=== PATIENT | male | born 1995 | race Caucasian/White ===

== ENCOUNTER 2023-03-14 19:43 | Emergency (ER) | payer SELFPAY ==
[2023-03-14 19:48] VITALS: BP 138/74; PULSE 103; RESP 20; TEMP 37; O2SAT 97; BMI 38.4
--- NOTE | 2023-03-14 19:55 | DI.RAD.S_ITS ---
PROCEDURE: XR CHEST 2V INDICATIONS: cough, SOB, wheeze TECHNIQUE: 2 views of the chest were acquired. COMPARISON: None. FINDINGS: Surgical changes and devices: None. Lungs and pleura: Lungs are clear. No pleural effusions or pneumothorax. Mediastinum: Mediastinal contours are normal. Heart size is normal. Bones and chest wall: No suspicious bony abnormalities. Soft tissues appear unremarkable. IMPRESSION: No acute pulmonary process. Dictated by: Naty Weems M.D. on 03/14/2023 at 20:32 Approved by: Naty Weems M.D. on 03/14/2023 at 20:32
--- NOTE | 2023-03-14 19:58 | ED_ITS ---
HPI - SOB/Dyspnea General Chief Complaint: Shortness of Breath/Dyspnea Stated Complaint: short of breath, cough, lightheaded Time Seen by Provider: 03/14/23 19:50 Source: patient Mode of arrival: Ambulatory Limitations: no limitations History of Present Illness HPI Narrative: 27-year-old male former smoker without chronic medical history presents with some runny nose, mild sore throat, wheezing and a dry hacking cough for the past few days. He denies any fever or chills. He denies nausea or vomiting. He has no body aches. He denies exposure to other ill persons. He has a sharp and stabbing central chest pain that is worse with deep breath or cough. He denies recent travel, trauma or injury. He denies any history of blood clot or known cancer. Denies any pain, swelling or redness of his extremities. Related Data Previous Rx's Medication Instructions Recorded benzonatate 200 mg capsule 200 mg PO BID PRN cough #20 caps 03/14/23 prednisone 10 mg tablet See Rx Instructions .Route 03/14/23 .COMPLEX #30 tabs Allergies Allergy/AdvReac Type Severity Reaction Status Date / Time No Known Drug Allergies Allergy Verified 03/14/23 19:48 Review of Systems Review of Systems Narrative: GENERAL: See HPI HEENT: Denies sinus pain, ear pain, sore throat, difficulty swallowing, dizziness. RESPIRATORY: See HPI CARDIOVASCULAR: See HPI GASTROINTESTINAL: Denies nausea, vomiting, abdominal pain, diarrhea, constipation, melena. : Denies dysuria, frequency, incontinence, hematuria, urinary retention. MUSCULOSKELETAL: denies weakness, joint pain, or bony pain SKIN: Denies rash, skin lesions, or other NEUROLOGIC: Denies weakness, headache, numbness, change in speech, confusion, seizures, incoordination. PSYCHIATRIC: No concerning psychosocial issues. 12 point review of systems is negative except for those stated above Patient History Social History Smoking Status: Former smoker Smoking Status: Former smoker Exam Narrative Exam Narrative: GENERAL: [27] year old patient appears stated age. Well-developed patient, in mild distress. HEAD: Atraumatic. Normocephalic. EYES: Pupils equal round and reactive. Extraocular motions intact. No scleral icterus. No injection or drainage. ENT: Nose without bleeding, purulent drainage. Throat without erythema, tonsillar hypertrophy or exudate. Airway patent. NECK: Trachea midline. Non tender CARDIOVASCULAR: Tachycardic but regular rhythm without murmurs, gallops, or rubs. Central chest pain worse with deep breath and with palpation RESPIRATORY: Decreased breath sounds throughout with an expiratory wheeze in all m[place], most notable in bases GASTROINTESTINAL: Abdomen soft, non-tender, nondistended. EXTREMITIES: No edema or joint tenderness. BACK: Nontender without deformity or crepitance. No flank tenderness. NEURO: AOx3. SKIN: No rash or erythema of visible areas Initial Vital Signs Initial Vital Signs: Vital Signs Temperature 98.6 F 03/14/23 19:48 Pulse Rate 103 H 03/14/23 19:48 Respiratory Rate 20 03/14/23 19:48 Blood Pressure 138/74 03/14/23 19:48 Pulse Oximetry 97 03/14/23 19:48 Oxygen Delivery Method Room Air 03/14/23 19:48 Scores PERC Score Age greater than or equal to 50 years: No Heart rate greater than or equal to 100 bpm: No Room Air O2 Sat less than 95%: No Unilateral leg swelling: No Recent trauma or surgery: No Hemoptysis: No Prior PE or DVT: No Hormone Use: No Total PERC Score: 0 Wells' Criteria for PE Clinical signs and symptoms of DVT: No PE is #1 Dx or equally likely: No Heart rate > 100: No Immobilization at least 3 days or surg in previous 4 weeks: No History of PE or DVT: No Hemoptysis: No Malignancy w/Treatment within 6 months or palliative: No Wells' PE Score total: 0 Course Orders Ordered: ED Orders 03/14/23 19:55 Chest [XR chest 2V] Stat Respiratory Panel (Film Array) Stat RT Consult Eval and Treat NOW Discontinued Medications Albuterol (Albuterol Hfa Prepack) 1 box MISC SEEINSTR ONE Stop: 03/14/23 20:37 Last Admin: 03/14/23 20:49 Dose: 1 box Documented By: USMAN Albuterol/Ipratropium (Albuterol/Ipratropium 3 Ml Ampul) 3 ml INH NOW ONE Stop: 03/14/23 19:56 Last Admin: 03/14/23 20:04 Dose: 3 ml Documented By: Prednisone (Prednisone 20 Mg Tablet) 40 mg PO NOW ONE Stop: 03/14/23 19:56 Last Admin: 03/14/23 20:10 Dose: 40 mg Documented By: USMAN Vital Signs Vital signs: Vital Signs - 8 hr 03/14/23 19:48 03/14/23 20:05 03/14/23 20:39 Temperature 98.6 F Pulse Rate 103 H 93 H Respiratory Rate 20 Blood Pressure 138/74 Pulse Oximetry 97 Oxygen Delivery Method Room Air Room Air MDM - SOB/Dyspnea Lab Data Labs: Lab Results 03/14/23 Range/Units 19:55 Chlamy pneumoniae PCR Not detected (Not Detect) Adenovirus (PCR) Not detected (Not Detect) B. pertussis DNA (PCR) Not detected (Not Detecte) B.parapertussis DNA PCR Not detected (Not Detecte) Coronavirus OC43 (PCR) Not detected (Not Detect) Coronavirus HKU1 (PCR) Not detected (Not Detect) Coronavirus 229E (PCR) Not detected (Not Detect) SARS-CoV-2 (PCR) Not detected (Not Detecte) Coronavirus NL63 (PCR) Not detected (Not Detect) Human Metapneumovir PCR Not detected (Not Detect) Influenza Type A (PCR) Not detected (Not Detect) Influenza Type B (PCR) Not detected (Not Detect) M. pneumoniae (PCR) Not detected (Not Detect) Parainfluenza 1 (PCR) Not detected (Not Detect) Parainfluenza 2 (PCR) Not detected (Not Detect) Parainfluenza 3 (PCR) Not detected (Not Detect) Parainfluenza 4 (PCR) Not detected (Not Detect) RSV (PCR) Not detected (Not Detect) Entero/Rhino (PCR) Not detected (Not Detect) MDM Narrative Medical decision making narrative: [27] year old patient presents with wheeze and cough Multiple etiologies for patient's symptoms considered including, but not limited to: [asthma exacerbation vs. viral URI vs. pneumonia vs. PE vs. other] Prior Charts reviewed in our EMR Primary Historian: patient Labs reviewed and interpreted by myself: Viral respiratory panel is negative Imaging reviewed: CXR without acute findings Patient's symptoms improved over duration of stay with above-stated therapies. Multiple diagnoses considered as noted above, patient had excellent improvement in symptoms with treatment for asthma exacerbation. Viral etiology considered but respiratory panel is negative. Pneumonia considered but chest x-ray clear and no rhonchi noted. PE considered but both Wells and PERC would suggest aga inst the need to pursue this as a diagnosis Findings and discharge diagnosis discussed with patient/family followed by verbalization of understanding Return precautions discussed with patient/family whom verbalize understanding of diagnosis and plan Discharge Plan Departure Patient Disposition: Home Clinical Impression: Asthma with exacerbation Instructions: DI for Asthma -- Adult Activity Restrictions/Additional Instructions: *You have been diagnosed with [bronchospastic cough consistent with asthma exacerbation. As we discussed your history and physical exam are reassuring, as was your response to therapies. Your chest x-ray demonstrates no obvious infectious process. As we discussed your respiratory panel is still pending and I will call you if there is any abnormal finding] *What to do: *Please continue to take your regular medications as directed. [x ] New medication prescriptions sent to your pharmacy: [[facility] ] [ ] New medication written as a paper prescription [ ] No new medications given *Please follow up with your primary care provider in 2-3 days, call for an appointment. Let them know you were seen in the Emergency Department and that we ask that you be seen in follow up. We will electronically transmit a record of today's note if your PCP is in our system *If you do not have a primary care provider please contact the [facility] Resource line at [phone]. They will ask some questions about your medical history and help get you set up with a doctor in the community. *Return to Emergency Department if you should have any new, worsening or concerning symptoms, such as [fever greater than 101 F, shaking chills, worsening pain, persistent vomiting or other bothersome symptoms] Prescriptions: New prednisone 10 mg tablet See Rx Instructions .ROUTE .COMPLEX Qty: 30 0RF Rx Instructions: Day 1,2,3: 40mg PO Daily Day 4,5,6: 30mg PO Daily Day 7,8,9: 20mg PO Daily Day 10,11,12: 10mg PO Daily #30 benzonatate 200 mg capsule 200 mg PO BID PRN (Reason: cough) Qty: 20 0RF Stand Alone Forms: Patient Portal/API
[2023-03-14] MEDS: ALBUTEROL/IPRATROPIUM 3 ML AMPUL INH (20:04)
[2023-03-14] MEDS: predniSONE 20 MG TABLET 40 MG PO (20:10)
[2023-03-14 20:39] VITALS: PULSE 93
[2023-03-14] MEDS: ALBUTEROL HFA PREPACK 1 BOX MISC (20:49)
[2023-03-14 20:57] LABS: Adenovirus Not Detected (Not Detect); B. parapertussis Not Detected (Not Detecte); Bordetella pertussis Not Detected (Not Detecte); Chlamydophila pneumoniae Not Detected (Not Detect); Coronavirus 229E Not Detected (Not Detect); Coronavirus HKU1 Not Detected (Not Detect); Coronavirus NL 63 Not Detected (Not Detect); Coronavirus OC43 Not Detected (Not Detect); Human Metapneumovirus Not Detected (Not Detect); Human Rhinovirus/Enterovirus Not Detected (Not Detect); Influenza A Not Detected (Not Detect); Influenza B Not Detected (Not Detect); Mycoplasma pneumoniae Not Detected (Not Detect); Parainfluenza Virus 1 Not Detected (Not Detect); Parainfluenza Virus 2 Not Detected (Not Detect); Parainfluenza Virus 3 Not Detected (Not Detect); Parainfluenza Virus 4 Not Detected (Not Detect); Respiratory Syncytial Virus Not Detected (Not Detect); SARS- CoV-2 Not Detected (Not Detecte)
== END 2023-03-14 20:58 | disposition home or self-care (01) ==
PROVIDERS: Emergency Provider Emergency Medicine
DX: J45.901 Unspecified asthma with (acute) exacerbation (principal); R06.02 Shortness of breath; Z20.822 Contact with and (suspected) exposure to COVID-19
CPT/HCPCS: 71046; 87633; 93005; 93010; 94640; 99283; 99284

== ENCOUNTER 2024-01-10 00:47 | Emergency (ER) | payer OTHER, SELFPAY ==
[2024-01-10 01:00] VITALS: BP 123/75; PULSE 84; RESP 16; TEMP 36.3; O2SAT 99; BMI 39.1
--- NOTE | 2024-01-10 01:00 | DI.RAD.S_ITS ---
PROCEDURE: XR CHEST 2V INDICATIONS: CHEST PAIN TECHNIQUE: 2 views of the chest were acquired. COMPARISON: [facility], CR, XR CHEST 2V, 03/14/2023, 19:59. FINDINGS: Surgical changes and devices: None. Lungs and pleura: Lungs are clear. No pleural effusions or pneumothorax. Mediastinum: Mediastinal contours are normal. Heart size is normal. Bones and chest wall: No suspicious bony abnormalities. Soft tissues appear unremarkable. IMPRESSION: No acute cardiopulmonary abnormalities or focal airspace disease. Dictated by: Abhijit Adames M.D. on 01/10/2024 at 1:25 Approved by: Abhijit Adames M.D. on 01/10/2024 at 1:25
--- NOTE | 2024-01-10 01:04 | ED_ITS ---
HPI - Chest Pain General Chief Complaint: Chest Pain Stated Complaint: chest pain, weakness Time Seen by Provider: 01/10/24 00:47 History of Present Illness HPI narrative: 28-year-old male with no reported past medical history presents by private vehicle from home for approximately 30 minutes central sternal chest pain. Patient states the pain is a tearing sensation that woke him up from sleep. States ?it feels like my sternum is being spread apart?. Sitting up and walking around makes the pain better. No medications taken prior to arrival. Patient denies personal history of heart problems. States that his father has a pacemaker and his mother is ?discussing a stent? with a pitting machine operator, denies personal or family history of aortic disease. Related Data Previous Rx's Medication Instructions Recorded benzonatate 200 mg capsule 200 mg PO BID PRN cough #20 caps 03/14/23 prednisone 10 mg tablet See Rx Instructions .Route 03/14/23 .COMPLEX #30 tabs Allergies Allergy/AdvReac Type Severity Reaction Status Date / Time No Known Drug Allergies Allergy Verified 03/14/23 19:48 Review of Systems Review of Systems Narrative: See HPI Patient History Social History Smoking Status: Former smoker Smoking Status: Former smoker Exam Narrative Exam Narrative: Const: Awake, alert, no acute distress Cardiac: regular rate, regular rhythm RESP: unlabored, clear bilaterally, no wheezing Skin: Warm, Dry, intact, no rashes Neuro: AO x3, CN II-XII grossly intact, moves all extremities Initial Vital Signs Initial Vital Signs: Vital Signs Temperature 97.4 F L 01/10/24 01:00 Pulse Rate 84 01/10/24 01:00 Respiratory Rate 16 01/10/24 01:00 Blood Pressure 123/75 01/10/24 01:00 Pulse Oximetry 99 01/10/24 01:00 Oxygen Delivery Method Room Air 01/10/24 01:00 Course Orders Ordered: ED Orders 01/10/24 01:00 Chest [XR chest 2V] Stat CBC Auto Diff [Complete Blood Count AUTO DIFF] Stat CMP [Comprehensive Metabolic Panel] Stat D Dimer Stat Troponin & CK Cardiac Panel Stat EKG-12 Lead Stat Discontinued Medications Ketorolac Tromethamine (Ketorolac 30 Mg/Ml Vial) 15 mg IV NOW ONE Stop: 01/10/24 01:06 Last Admin: 01/10/24 01:35 Dose: 15 mg Documented By: AB Vital Signs Vital signs: Vital Signs - 8 hr 01/10/24 01:00 01/10/24 01:16 01/10/24 01:30 Temperature 97.4 F L Pulse Rate 84 80 Respiratory Rate 16 Blood Pressure 123/75 Pulse Oximetry 99 96 98 Oxygen Delivery Method Room Air 01/10/24 01:30 01/10/24 02:00 01/10/24 02:01 Temperature Pulse Rate 67 71 Respiratory Rate 16 16 Blood Pressure 113/63 Pulse Oximetry 96 95 Oxygen Delivery Method 01/10/24 02:01 Temperature Pulse Rate Respiratory Rate Blood Pressure 112/58 L Pulse Oximetry Oxygen Delivery Method MDM - Chest Pain Differential Diagnosis Differential diagnosis: Likely fracture of rib, pneumothorax and stable angina Lab Data 01/10/24 01:00 01/10/24 01:00 Labs: Lab Results 01/10/24 Range/Units 01:00 WBC 8.0 (4.5-11.0) X10^3/uL RBC 5.15 (4.5-5.9) X10^6/uL Hgb 15.5 (13.5-17.5) g/dL Hct 45.1 (41-53) % MCV 87.6 (80-100) fL MCH 30.1 (26-34) PG MCHC 34.3 (30-36) % RDW 13.7 (11.6-14.8) % Plt Count 336 (150-400) X10^3/uL Neut % (Auto) 51.6 (50-75) % Lymph % (Auto) 34.8 (25-40) % Clayton % (Auto) 9.1 (3-14) % Eos % (Auto) 3.7 (2-4) % Baso % (Auto) 0.8 (0-2) % Neut # (Auto) 4100 (0980-9171) /uL Lymph # (Auto) 2800 (2659-9792) /uL Clayton # (Auto) 700 (0-900) /uL Eos # (Auto) 300 (0-450) /uL Baso # (Auto) 100 (0-100) /uL D-Dimer 331 (<500) ng/ml Sodium 141 (137-145) mmol/L Potassium 3.7 (3.4-5.1) mmol/L Chloride 108 H (98-107) mmol/L Carbon Dioxide 27 (22-32) mmol/L BUN 15 (9-20) mg/dL Creatinine 0.92 (0.66-1.25) mg/dL Estimated GFR > 60 (>60) mL/min BUN/Creatinine Ratio 16.3 (6-22) Glucose 94 (70-100) mg/dL Calcium 9.6 (8.4-10.2) mg/dL Total Bilirubin 0.6 (0.2-1.3) mg/dL AST 40 (17-59) IU/L ALT 29 (<50) IU/L Alkaline Phosphatase 52 (38-126) U/L Total Creatine Kinase 211 H (55-170) U/L Troponin I < 0.012 (0.01-0.034) ng/mL Total Protein 7.9 (6.3-8.2) g/dL Albumin 4.8 (3.5-5.0) g/dL Globulin 3.1 (1.7-4.1) g/dL Albumin/Globulin Ratio 1.5 (1.0-2.8) ECG Data Interpretation: Normal sinus rhythm at 88 beats per minute. No ST T wave changes, no STEMI MDM Narrative Medical decision making narrative: Well-appearing patient with central chest pain. Heart score 2 based on BMI and family history of heart disease. EKG is normal sinus rhythm without concerning findings. Laboratory work is reviewed, unremarkable. Troponin undetectable. Chest x-ray negative for acute findings. Chest pain resolved with Toradol. Possible that pain is musculoskeletal in nature due to borderline elevated CK. Patient reassessed, sitting comfortably in bed. All lab and imaging findings reviewed with the patient. Patient reassured and recommended close PCP follow up. Discharge Plan Departure Patient Disposition: Home Clinical Impression: Chest pain Instructions: DI for Chest Pain Activity Restrictions/Additional Instructions: Your labs and imaging today were normal. Your EKG did not show any concerning findings. I do not know the cause of your chest pain however your workup is reassuring. Follow up with a primary care physician. If you notice new or worsening symptoms I recommend coming back to the emergency department for repeat evaluation. Prescriptions: No Action prednisone 10 mg tablet See Rx Instructions .ROUTE .COMPLEX Qty: 30 0RF Rx Instructions: Day 1,2,3: 40mg PO Daily Day 4,5,6: 30mg PO Daily Day 7,8,9: 20mg PO Daily Day 10,11,12: 10mg PO Daily #30 benzonatate 200 mg capsule 200 mg PO BID PRN (Reason: cough) Qty: 20 0RF Stand Alone Forms: Patient Portal/API, Work Release Note
[2024-01-10 01:15] LABS: Add Manual Diff / Slide Review NO; Basophils Absolute Auto 100 /uL (0-100); Basophils Percent Auto 0.8 % (0-2); Eosinophils Absolute Auto 300 /uL (0-450); Eosinophils Percent Auto 3.7 % (2-4); Hematocrit 45.1 % (41-53); Hemoglobin 15.5 g/dL (13.5-17.5); Lymphocytes Absolute Auto 2800 /uL (1100-4500); Lymphocytes Percent Auto 34.8 % (25-40); Mean Corpuscular HGB Conc 34.3 % (30-36); Mean Corpuscular Hemoglobin 30.1 PG (26-34); Mean Corpuscular Volume 87.6 fL (80-100); Monocytes Absolute Auto 700 /uL (0-900); Monocytes Percent Auto 9.1 % (3-14); Neutrophils Absolute Auto 4100 /uL (1500-7000); Neutrophils Percent Auto 51.6 % (50-75); Platelet Count 336 X10^3/uL (150-400); Red Blood Cell Count 5.15 X10^6/uL (4.5-5.9); Red Cell Distribution Width 13.7 % (11.6-14.8)
[2024-01-10 01:16] VITALS: O2SAT 96
[2024-01-10 01:30] VITALS: BP 113/63; PULSE 80; O2SAT 98
[2024-01-10 01:33] LABS: D Dimer 331 ng/ml (<500)
[2024-01-10] MEDS: KETOROLAC 30 MG/ML VIAL 15 MG IV (01:35)
[2024-01-10 01:36] LABS: Alanine Aminotransferase 29 IU/L (<50); Albumin 4.8 g/dL (3.5-5.0); Albumin Globulin Ratio 1.5 (1.0-2.8); Alkaline Phosphatase 52 U/L (38-126); Aspartate Aminotransferase 40 IU/L (17-59); BUN Creatinine Ratio 16.3 (6-22); Bilirubin Total 0.6 mg/dL (0.2-1.3); Blood Urea Nitrogen 15 mg/dL (9-20); Calcium 9.6 mg/dL (8.4-10.2); Carbon Dioxide 27 mmol/L (22-32); Chloride 108 mmol/L (98-107); Creatine Kinase 211 U/L (55-170); Estimated Glomerular Filt Rate > 60 mL/min (>60); Globulin 3.1 g/dL (1.7-4.1); Glucose 94 mg/dL (70-100); HEMOLYSIS 25 (0-50); Potassium 3.7 mmol/L (3.4-5.1); Sodium 141 mmol/L (137-145); Total Protein 7.9 g/dL (6.3-8.2)
[2024-01-10 01:47] LABS: Troponin I < 0.012 ng/mL (0.01-0.034)
[2024-01-10 02:00] VITALS: PULSE 67; RESP 16; O2SAT 96
[2024-01-10 02:01] VITALS: BP 112/58; PULSE 71; RESP 16; O2SAT 95
== END 2024-01-10 02:40 | disposition home or self-care (01) ==
PROVIDERS: Emergency Provider Emergency Medicine
DX: R07.9 Chest pain, unspecified (principal)
CPT/HCPCS: 36415; 71046; 80053; 82550; 84484; 85025; 85379; 93005; 96374; 99284; J1885